=== PATIENT | male | born 1975 | race Caucasian/White ===

== ENCOUNTER 2018-10-02 13:00 | Emergency (ER) | payer OTHER ==
[2018-10-02 13:07] VITALS: BP 156/79
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
[2018-10-02] MEDS ORDERED: DOXYCYCLINE HYCLATE 100 MG TABLET PO ONE (15:53)
== END 2018-10-02 16:17 | disposition home or self-care (01) ==
LOC: ER 13:00
DX: L02.416 Cutaneous abscess of left lower limb (principal); Z88.2 Allergy status to sulfonamides; Z88.1 Allergy status to other antibiotic agents; Z88.0 Allergy status to penicillin; Z91.048 Other nonmedicinal substance allergy status
CPT/HCPCS: 87070; 87205; 99283